=== PATIENT | male | born 1945 | race Hispanic/Latino ===

== ENCOUNTER 2017-09-17 20:15 | Emergency (ER) | payer OTHER ==
[~2017-09-17 20:15] MED LIST: AMLODIPINE PO; ASPI-1005 PO; ATEN100T PO; CLOP75TA32 PO; FENO134C PO; HYDR100T27 PO; INSU10VI3 SQ; LISI-617 PO; PRAV40TA3 PO; SODI325T PO; TORS10TA18 PO; VORA2.082 PO
[2017-09-17 20:55] LABS: BASOPHILS % (AUTO) 1.3 % (0.0-5.0); HEMATOCRIT 23.6 % (42-54); LYMPHOCYTES % (AUTO) 10.4 % (21.0-51.0); MEAN CORPUSCULAR VOLUME 88.6 fL (79-99); MONOCYTES % (AUTO) 7.5 % (3.0-13.0); NEUTROPHILS % (AUTO) 73.8 % (40.0-77.0); PLATELET COUNT (AUTO) 235 K/uL (130-400); RED BLOOD CELL COUNT(AUTO) 2.67 MIL/uL (4.50-6.20); RED CELL DISTRIBUTION WIDTH 13.3 % (11.0-15.5); WHITE BLOOD COUNT (AUTO) 8.9 K/uL (4.8-10.8)
[2017-09-17 21:13] LABS: INR 0.95 (0.85-1.15); PARTIAL THROMBOPLASTIN TIME 26.8 SEC (26.3-35.5)
[2017-09-17 21:23] LABS: BILIRUBIN,TOTAL 0.3 mg/dL (0.2-1.0); CREATININE 6.7 mg/dL (0.5-1.5); TOTAL PROTEIN, SERUM 6.1 g/dL (6.0-8.3)
[2017-09-17 21:34] LABS: B-TYPE NATRIURETIC PEPTIDE 846 pg/mL (0-100)
== END 2017-09-17 22:52 | disposition home or self-care (01) ==
LOC: EDH 20:15
DX: I13.11 Hypertensive heart and chronic kidney disease without heart failure, with stage 5 chronic kidney disease, or end stage renal disease (principal); N18.6 End stage renal disease; M79.89 Other specified soft tissue disorders; E11.22 Type 2 diabetes mellitus with diabetic chronic kidney disease; E78.5 Hyperlipidemia, unspecified; Z86.73 Personal history of transient ischemic attack (TIA), and cerebral infarction without residual deficits; Z95.1 Presence of aortocoronary bypass graft; Z90.49 Acquired absence of other specified parts of digestive tract; Z99.2 Dependence on renal dialysis; Z72.0 Tobacco use
CPT/HCPCS: 36415; 71045; 80053; 83605; 83874; 83880; 84484; 85025; 85378; 85610; 85730; 93005; 93970

== ENCOUNTER → 2018-07-18 | Outpatient (CLI) | payer OTHER ==
[~2018-07-18] MED LIST changes: +AMLO10TA6 PO; -AMLODIPINE PO; -ATEN100T PO; +CARV25TA PO; +CILO50TA PO; +CLON0.1T PO; -CLOP75TA32 PO; +Calcium Acetate PO; -FENO134C PO; -HYDR100T27 PO; -INSU10VI3 SQ; +LACT PO; -LISI-617 PO; -SODI325T PO; -TORS10TA18 PO; +VIT-7 PO; -VORA2.082 PO
== END | disposition home or self-care (01) ==
LOC: SHCH 10:57
PROVIDERS: ATTEND Internal Medicine Cardiovascular Disease
DX: I51.7 Cardiomegaly (principal)
CPT/HCPCS: 93306

== ENCOUNTER → 2018-07-25 | Outpatient (CLI) | payer OTHER | END | disposition home or self-care (01) | LOC: SHCH 11:01 | PROVIDERS: ATTEND Internal Medicine Cardiovascular Disease | DX: I73.9 Peripheral vascular disease, unspecified (principal) | CPT/HCPCS: 93925 ==

== ENCOUNTER 2018-12-26 10:51 | Inpatient (IN) | payer OTHER | END 2019-01-03 15:15 | disposition home or self-care (01) | LOC: EDH 10:51 → 3BH 12-29 15:33 → EDHIP 14:26 → 2AH 20:20 | PROC: 0W9B30Z Drainage of Left Pleural Cavity with Drainage Device, Percutaneous Approach (ICD-10-PCS; principal; ~2018-12-26) | PROC: 0BBJ8ZX Excision of Left Lower Lung Lobe, Via Natural or Artificial Opening Endoscopic, Diagnostic (ICD-10-PCS; ~2018-12-26) | DX: J90 Pleural effusion, not elsewhere classified (principal); J96.91 Respiratory failure, unspecified with hypoxia; N18.6 End stage renal disease; I12.0 Hypertensive chronic kidney disease with stage 5 chronic kidney disease or end stage renal disease; Z99.2 Dependence on renal dialysis; E11.22 Type 2 diabetes mellitus with diabetic chronic kidney disease; E87.70 Fluid overload, unspecified; E11.21 Type 2 diabetes mellitus with diabetic nephropathy; E11.51 Type 2 diabetes mellitus with diabetic peripheral angiopathy without gangrene; I25.10 Atherosclerotic heart disease of native coronary artery without angina pectoris; D63.1 Anemia in chronic kidney disease; R63.4 Abnormal weight loss; Z95.820 Peripheral vascular angioplasty status with implants and grafts ==

== ENCOUNTER 2019-07-23 13:53 | Emergency (ER) | payer OTHER ==
[~2019-07-23 13:53] MED LIST changes: -AMLO10TA6 PO; +AMLO10TA7 PO
[2019-07-23 14:19] LABS: BASOPHILS % (AUTO) 0.8 % (0.0-5.0); EOSINOPHILS % (AUTO) 0.5 % (0.0-8.0); LYMPHOCYTES % (AUTO) 6.4 % (21.0-51.0); MEAN CORPUSCULAR HEMOGLOBIN 31.9 pg (27.0-33.0); MEAN CORPUSCULAR VOLUME 93.9 fL (79-99); MONOCYTES % (AUTO) 3.7 % (3.0-13.0); NEUTROPHILS % (AUTO) 88.6 % (40.0-77.0); NUCLEATED RED BLOOD CELLS 0.1 % (0.0-0.19); PLATELET COUNT (AUTO) 197 K/uL (130-400); RED BLOOD CELL COUNT(AUTO) 3.94 MIL/uL (4.50-6.20); RED CELL DISTRIBUTION WIDTH 14.2 % (11.0-15.5); WHITE BLOOD COUNT (AUTO) 8.7 K/uL (4.8-10.8)
[2019-07-23] MEDS ORDERED: ONDANSETRON HCL 4 MG/2 ML VIAL ONE (14:25)
[2019-07-23 14:39] LABS: ALBUMIN 3.6 g/dL (3.5-5.0); BILIRUBIN,DIRECT 0.1 mg/dL (0.0-0.3); BILIRUBIN,TOTAL 0.4 mg/dL (0.2-1.0); POTASSIUM 5.1 mmol/L (3.5-5.1); TOTAL PROTEIN, SERUM 7.6 g/dL (6.0-8.3)
[2019-07-23 14:43] LABS: CREATININE 8.5 mg/dL (0.5-1.5)
== END 2019-07-23 16:40 | disposition home or self-care (01) ==
LOC: EDH 13:53
DX: R10.9 Unspecified abdominal pain (principal); R31.9 Hematuria, unspecified; N18.6 End stage renal disease; I12.0 Hypertensive chronic kidney disease with stage 5 chronic kidney disease or end stage renal disease; E11.22 Type 2 diabetes mellitus with diabetic chronic kidney disease; E78.5 Hyperlipidemia, unspecified; Z72.0 Tobacco use; Z98.890 Other specified postprocedural states; Z86.73 Personal history of transient ischemic attack (TIA), and cerebral infarction without residual deficits; Z99.2 Dependence on renal dialysis
CPT/HCPCS: 36415; 74176; 80048; 80076; 83690; 84484; 85025; 93005; 96374; 99284; J2405

== ENCOUNTER 2019-09-25 15:49 | Emergency (ER) | payer OTHER ==
[2019-09-25] MEDS ORDERED: TRAMADOL HCL 50 MG TABLET ONE (16:15)
== END 2019-09-25 17:25 | disposition home or self-care (01) ==
LOC: EDH 15:49
DX: G89.29 Other chronic pain (principal); M79.672 Pain in left foot; I73.9 Peripheral vascular disease, unspecified; E13.22 Other specified diabetes mellitus with diabetic chronic kidney disease; I12.0 Hypertensive chronic kidney disease with stage 5 chronic kidney disease or end stage renal disease; N18.6 End stage renal disease; E78.5 Hyperlipidemia, unspecified; Z72.0 Tobacco use

== ENCOUNTER 2019-10-16 10:00 | Observation (INO) | payer OTHER ==
[2019-10-16] VITALS (11 sets, daily range): BP systolic 100–169; BP diastolic 39–103
[~2019-10-16] VITALS: Ht 166.4 cm; Wt 75.2 kg
[~2019-10-16 10:00] MED LIST changes: +FENTANYL CITRATE PF 50 MCG/1 ML 2ML VIAL ONE; +HEPARIN SODIUM 1000UNIT/ML 10ML VIAL ONE; +IODIXANOL 320 MG/ML 100 ML VIAL ONE; +LEVO500T2 PO; +LIDOCAINE HCL 2% 20ML ONE; +MIDAZOLAM HCL 1 MG/ML 2ML VIAL ONE; +NITROGLYCERIN 2 MG/VIAL VIAL IV ONE; +TRAM50TA4 PO
[2019-10-16 10:46] LABS: BASOPHILS % (AUTO) 1.2 % (0.0-5.0); HEMATOCRIT 33.3 % (42-54); LYMPHOCYTES % (AUTO) 11.1 % (21.0-51.0); MEAN CORPUSCULAR HEMOGLOBIN 31.2 pg (27.0-33.0); MEAN CORPUSCULAR VOLUME 94.3 fL (79-99); MONOCYTES % (AUTO) 7.9 % (3.0-13.0); NEUTROPHILS % (AUTO) 73.3 % (40.0-77.0); PLATELET COUNT (AUTO) 203 K/uL (130-400); RED BLOOD CELL COUNT(AUTO) 3.53 MIL/uL (4.50-6.20); RED CELL DISTRIBUTION WIDTH 13.2 % (11.0-15.5); WHITE BLOOD COUNT (AUTO) 7.5 K/uL (4.8-10.8)
[2019-10-16 10:55] LABS: INR 1.02 (0.85-1.15); PARTIAL THROMBOPLASTIN TIME 28.5 SEC (26.3-35.5); PROTHROMBIN TIME 10.7 SEC (9.6-11.6)
[2019-10-16 10:58] LABS: CREATININE 6.1 mg/dL (0.5-1.5); POTASSIUM 4.6 mmol/L (3.5-5.1)
[2019-10-16 11:03] LABS: APPEARANCE,URINE Cloudy (CLEAR); BILIRUBIN,URINE Negative (NEGATIVE); COLOR,URINE Yellow (YELLOW); GLUCOSE, URINE (UA) 250 mg/dL (NEGATIVE); KETONES,URINE Negative (NEGATIVE); LEUKOCYTE ESTERASE ,URINE Negative (NEGATIVE); NITRATE,URINE Negative (NEGATIVE); OCCULT BLOOD,URINE Negative (NEGATIVE); PH,URINE 7.5 (5.0-8.0); PROTEIN,URINE 300 mg/dL (NEGATIVE)
[2019-10-16] MEDS ORDERED: SODIUM CHLORIDE 0.9% 500ML 500 ML IV SCH (11:30)
[2019-10-16 11:31] LABS: BACTERIA,URINE Few /HPF (None Seen); RBC,URINE 0-1 /HPF (0-1); WBC,URINE 0-1 /HPF (0-1)
--- NOTE | 2019-10-16 12:16 | NUR ---
SPOKE TO BO BAIRD AWARE OF ABNORMAL LABS CREAT 6.1 PT ON DIALYSIS TU, THRU, SAT. NO NEW ORDERS AT THIS TIME.
[2019-10-16] MEDS ORDERED: CLOPIDOGREL BISULFATE 300 MG TAB ONE (17:43)
[2019-10-16] MEDS ORDERED: ASPIRIN 81MG TAB.CHEW ONE (17:43)
[2019-10-16] MEDS ORDERED: DEXTROSE 50%-WATER 50 ML DISP.SYRIN IV PRN (17:45)
[2019-10-16] MEDS ORDERED: METOPROLOL TARTRATE 1 MG/ML 5ML VIAL IV PRN (17:45)
[2019-10-16] MEDS ORDERED: GLUCAGON 1MG KIT 1 MG ML IM PRN (17:45)
[2019-10-16] MEDS ORDERED: NITROGLYCERIN 0.4 MG SL TAB SL PRN (17:45)
[2019-10-16] MEDS ORDERED: CILOSTAZOL 100 MG TAB PO SCH (21:00)
[2019-10-16] MEDS: CARVEDILOL 25 MG TABLET PO SCH ×2 (21:00→21:50)
[2019-10-16] MEDS ORDERED: CLONIDINE HCL 0.1 MG TABLET PO SCH (21:00)
[2019-10-16] MEDS: INSULIN HUMULIN R 100 UNIT/ML 3ML SQ SCH (21:52)
[2019-10-17 04:00] VITALS: BP 107/44
[2019-10-17 04:52] LABS: HEMATOCRIT 29.5 % (42-54); MEAN CORPUSCULAR HEMOGLOBIN 30.8 pg (27.0-33.0); MEAN CORPUSCULAR HGB CONC 33.6 g/dL (32.0-36.0); MEAN CORPUSCULAR VOLUME 91.9 fL (79-99); PLATELET COUNT (AUTO) 203 K/uL (130-400); RED BLOOD CELL COUNT(AUTO) 3.21 MIL/uL (4.50-6.20); RED CELL DISTRIBUTION WIDTH 13.2 % (11.0-15.5)
[2019-10-17 04:59] LABS: POTASSIUM 4.1 mmol/L (3.5-5.1)
[2019-10-17] MEDS ORDERED: TRAMADOL HCL 50 MG TABLET PO STA (05:58)
[2019-10-17] MEDS: INSULIN HUMULIN R 100 UNIT/ML 3ML SQ SCH (06:09)
[2019-10-17 07:43] VITALS: BP 97/79
--- NOTE | 2019-10-17 08:00 | NUR ---
DISCHARGE INSTRUCTIONS GIVEN TO PATIENT. 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 PRESCRIPTION FOR PLAVIX INCLUDED IN THE D/C PACKET. ACTIVITY RESTRICTIONS DISCUSSED WITH PATIENT. RIGHT PRESSURE DRESSING OVER BRACHIAL PUNCTURE SITE IS STILL IN PLACE. NO SIGN OF HEMATOMA, BLEEDING, AND/OR OOZING. PIV X 2 REMOVED. ALL BELONGINGS WERE PACKED AND TAKEN HOME. TELE PACK REMOVED AND RETURNED.
[2019-10-17] MEDS ORDERED: AMLODIPINE BESYLATE 5 MG TAB PO SCH (09:00)
[2019-10-17] MEDS ORDERED: CLOPIDOGREL BISULFATE 75 MG TAB PO SCH (09:00)
[2019-10-17] MEDS ORDERED: FOLIC ACID/VITAMIN B COMP W-C 1 MG CAP/TAB PO SCH (09:00)
[2019-10-17] MEDS ORDERED: SIMVASTATIN 20 MG TABLET PO SCH (09:00)
[2019-10-17] MEDS ORDERED: ASPIRIN 81MG TAB.CHEW PO SCH (09:00)
== END 2019-10-17 09:15 | disposition home or self-care (01) ==
LOC: DAH 10:00 → CLH 10:00 → DAH 18:40 → 2DH 18:40
PROVIDERS: ADMIT Internal Medicine Cardiovascular Disease; ATTEND Internal Medicine Cardiovascular Disease
DX: I73.89 Other specified peripheral vascular diseases (principal); I77.89 Other specified disorders of arteries and arterioles; I25.810 Atherosclerosis of coronary artery bypass graft(s) without angina pectoris; E11.21 Type 2 diabetes mellitus with diabetic nephropathy; E11.40 Type 2 diabetes mellitus with diabetic neuropathy, unspecified; E11.22 Type 2 diabetes mellitus with diabetic chronic kidney disease; N18.6 End stage renal disease; E78.5 Hyperlipidemia, unspecified; Z86.73 Personal history of transient ischemic attack (TIA), and cerebral infarction without residual deficits; Z99.2 Dependence on renal dialysis; Z72.0 Tobacco use
CPT/HCPCS: 36415 ×2; 37226; 80048 ×2; 81001; 82948 ×3; 85025; 85027; 85347; 85610; 85730; 96372; A4215; A4216; A4221; A4222; A4223 ×3; A4606; A4663; C1725 ×2; C1769 ×3; C1887 ×2; C1893; C1894 ×2; C2623; G0378 ×7; J1644 ×3; J1815; J3010; J3490 ×2; Q9967; 75710; 75774; J2250

== ENCOUNTER → 2020-04-27 | Outpatient (CLI) | payer OTHER ==
[~2020-04-27] MED LIST changes: -Calcium Acetate PO; -FENTANYL CITRATE PF 50 MCG/1 ML 2ML VIAL ONE; -HEPARIN SODIUM 1000UNIT/ML 10ML VIAL ONE; -IODIXANOL 320 MG/ML 100 ML VIAL ONE; -LACT PO; -LEVO500T2 PO; -LIDOCAINE HCL 2% 20ML ONE; -MIDAZOLAM HCL 1 MG/ML 2ML VIAL ONE; -NITROGLYCERIN 2 MG/VIAL VIAL IV ONE; -TRAM50TA4 PO
== END | disposition home or self-care (01) ==
LOC: SHCH 16:10
PROVIDERS: ATTEND Internal Medicine Cardiovascular Disease
DX: I73.9 Peripheral vascular disease, unspecified (principal)
CPT/HCPCS: 93925

== ENCOUNTER → 2020-07-07 | Outpatient (CLI) | payer OTHER ==
[~2020-07-07] MED LIST changes: +AMLO-258 PO; -AMLO10TA7 PO; +CLOP75TA32 PO; +FOLI1TAB85 PO; +RIVA2.5T PO
== END | disposition home or self-care (01) ==
LOC: SHCH 14:22
PROVIDERS: ATTEND Internal Medicine Cardiovascular Disease
DX: I73.9 Peripheral vascular disease, unspecified (principal); I87.2 Venous insufficiency (chronic) (peripheral)
CPT/HCPCS: 93926

== ENCOUNTER 2020-07-13 06:00 | Day surgery (SDC) | payer OTHER ==
[2020-07-11 17:09] LABS: BASOPHILS % (AUTO) 0.7 % (0.0-5.0); EOSINOPHILS % (AUTO) 5.2 % (0.0-8.0); HEMATOCRIT 32.4 % (42-54); LYMPHOCYTES % (AUTO) 9.8 % (21.0-51.0); MEAN CORPUSCULAR HEMOGLOBIN 30.6 pg (27.0-33.0); MONOCYTES % (AUTO) 6.1 % (3.0-13.0); NEUTROPHILS % (AUTO) 77.9 % (40.0-77.0); PLATELET COUNT (AUTO) 195 K/uL (130-400); RED CELL DISTRIBUTION WIDTH 13.2 % (11.0-15.5); WHITE BLOOD COUNT (AUTO) 6.7 K/uL (4.8-10.8)
[2020-07-11 17:18] LABS: CREATININE 3.9 mg/dL (0.5-1.5); POTASSIUM 4.1 mmol/L (3.5-5.1)
[2020-07-11 17:20] LABS: INR 0.99 (0.85-1.15); PARTIAL THROMBOPLASTIN TIME 31.3 SEC (26.3-35.5); PROTHROMBIN TIME 10.7 SEC (9.6-11.6)
--- NOTE | 2020-07-12 13:45 | NUR ---
DR HERNANDEZ INFORMED OF ABNORMAL LABS. ALSO AWARE THAT PT IS TAKING XARELTO HE PRESCRIBED. XARELTO OK PER DR HERNANDEZ. NO FURTHER ORDERS
[2020-07-12 13:54] VITALS: BP 177/62
[2020-07-13] VITALS (20 sets, daily range): BP systolic 134–183; BP diastolic 46–70
[~2020-07-13] VITALS: Ht 165.1 cm; Wt 79.7 kg
[~2020-07-13 06:00] MED LIST changes: -CILO50TA PO; +SODIUM CHLORIDE 0.9% 500ML 500 ML IV SCH; -VIT-7 PO
[2020-07-13] MEDS ORDERED: SODIUM CHLORIDE 0.9% 1000ML 1,000 ML IV ONE (07:10)
[2020-07-13] MEDS ORDERED: NITROGLYCERIN 2 MG/VIAL VIAL IV ONE (07:18)
[2020-07-13] MEDS ORDERED: IODIXANOL 320 MG/ML 100 ML VIAL ONE (07:18)
[2020-07-13] MEDS ORDERED: HEPARIN SODIUM 1000UNIT/ML 10ML VIAL ONE (07:18)
[2020-07-13] MEDS ORDERED: MIDAZOLAM HCL 1 MG/ML 2ML VIAL ONE (07:19)
[2020-07-13] MEDS ORDERED: FENTANYL CITRATE PF 50 MCG/1 ML 2ML VIAL ONE (07:19)
[2020-07-13] MEDS ORDERED: LIDOCAINE HCL 2% 20ML ONE (07:19)
[2020-07-13] MEDS ORDERED: GLUCAGON 1MG KIT 1 MG ML IM PRN (09:30)
[2020-07-13] MEDS ORDERED: NITROGLYCERIN 0.4 MG SL TAB SL PRN (09:30)
[2020-07-13] MEDS ORDERED: DEXTROSE 50%-WATER 50 ML DISP.SYRIN IV PRN (09:30)
[2020-07-13] MEDS ORDERED: METOPROLOL TARTRATE 1 MG/ML 5ML VIAL IV PRN (09:30)
[2020-07-13] MEDS ORDERED: SODIUM CHLORIDE 0.9% 500ML 500 ML IV SCH (09:45)
[2020-07-13] MEDS ORDERED: INSULIN HUMULIN R 100 UNIT/ML 3ML SQ SCH (11:30)
[2020-07-13] MEDS ORDERED: ATROPINE SULFATE 0.1 MG/ML 10 ML SYG IVP ONE (12:04)
--- NOTE | 2020-07-13 14:15 | NUR ---
PT ENDORSED TO WILLIAM ESTRADA
[2020-07-22] MEDS ORDERED: TRAM50TA4 PO (10:45)
== END 2020-07-13 16:05 | disposition home or self-care (01) ==
LOC: DAH 06:00
PROVIDERS: ATTEND Internal Medicine Cardiovascular Disease
DX: I70.202 Unspecified atherosclerosis of native arteries of extremities, left leg (principal); M62.262 Nontraumatic ischemic infarction of muscle, left lower leg; E11.51 Type 2 diabetes mellitus with diabetic peripheral angiopathy without gangrene; E11.21 Type 2 diabetes mellitus with diabetic nephropathy; I25.10 Atherosclerotic heart disease of native coronary artery without angina pectoris; Z95.1 Presence of aortocoronary bypass graft; E78.5 Hyperlipidemia, unspecified; E11.22 Type 2 diabetes mellitus with diabetic chronic kidney disease; N18.6 End stage renal disease; Z86.73 Personal history of transient ischemic attack (TIA), and cerebral infarction without residual deficits; Z99.2 Dependence on renal dialysis; Z98.890 Other specified postprocedural states; Z79.01 Long term (current) use of anticoagulants; Z79.899 Other long term (current) drug therapy
CPT/HCPCS: 36415; 37224; 71045; 75710; 80048; 82948 ×2; 85025; 85610; 85730; 93005; A4215; A4216; A4221; A4222; A4223 ×3; A4606; A4663; C1725; C1769 ×5; C1887; C1893; C1894 ×2; J1644 ×2; J1815; J2250; J3010; J3490 ×2; J7030; Q9967; 75774; 99156; 99157; J0461

== ENCOUNTER 2020-07-25 07:24 | Observation (INO) | payer OTHER ==
[2020-07-25] VITALS (10 sets, daily range): BP systolic 160–188; BP diastolic 53–83
[~2020-07-25 07:24] MED LIST changes: -SODIUM CHLORIDE 0.9% 500ML 500 ML IV SCH; +TRAM50TA4 PO
[2020-07-25] MEDS ORDERED: SODIUM CHLORIDE 0.9% 1000ML 1,000 ML IV ONE (07:53)
[2020-07-25] MEDS ORDERED: HEPARIN SODIUM 1000UNIT/ML 10ML VIAL ONE ×2 (11:05→14:05)
[2020-07-25] MEDS ORDERED: MIDAZOLAM HCL 1 MG/ML 2ML VIAL ONE ×2 (11:05→14:18)
[2020-07-25] MEDS ORDERED: IODIXANOL 320 MG/ML 100 ML VIAL ONE ×2 (11:05→14:05)
[2020-07-25] MEDS ORDERED: NITROGLYCERIN 2 MG/VIAL VIAL IV ONE ×2 (11:05→14:25)
[2020-07-25] MEDS ORDERED: MEPERIDINE-PF 25 MG/ML SYG ONE (11:05)
[2020-07-25] MEDS ORDERED: LIDOCAINE HCL 2% 20ML ONE (11:05)
[2020-07-25] MEDS ORDERED: LIDOCAINE HCL 1% MDV 50ML VIAL ONE (14:05)
[2020-07-25] MEDS ORDERED: FENTANYL CITRATE PF 50 MCG/1 ML 2ML VIAL ONE (14:19)
[2020-07-25] MEDS ORDERED: DEXTROSE 50%-WATER 50 ML DISP.SYRIN IV PRN (17:00)
[2020-07-25] MEDS ORDERED: GLUCAGON 1MG KIT 1 MG ML IM PRN (17:00)
[2020-07-25] MEDS ORDERED: NITROGLYCERIN 0.4 MG SL TAB SL PRN (17:00)
[2020-07-25] MEDS ORDERED: TRAMADOL HCL 50 MG TABLET PO PRN (18:15)
[2020-07-25] MEDS: RIVAROXABAN 2.5 MG TABLET PO SCH (20:10)
[2020-07-25] MEDS: CARVEDILOL 25 MG TABLET PO SCH (20:10)
[2020-07-25] MEDS: CLONIDINE HCL 0.1 MG TABLET PO SCH (20:13)
[2020-07-25] MEDS ORDERED: NON-FORMULARY MEDICATION 1 EACH (Amlodipine Besylate 10 MG) PO SCH (21:00)
[2020-07-25] MEDS: INSULIN HUMULIN R 100 UNIT/ML 3ML SQ SCH (21:00)
[2020-07-25] MEDS ORDERED: SIMVASTATIN 20 MG TABLET PO SCH (21:00)
[2020-07-25] MEDS ORDERED: AMLODIPINE BESYLATE 5 MG TAB PO SCH (21:00)
[2020-07-26] VITALS: BP 148/65
[2020-07-26 04:00] VITALS: BP 175/58
[2020-07-26 05:56] LABS: BASOPHILS % (AUTO) 0.6 % (0.0-5.0); EOSINOPHILS % (AUTO) 4.6 % (0.0-8.0); HEMATOCRIT 26.7 % (42-54); MEAN CORPUSCULAR HEMOGLOBIN 30.2 pg (27.0-33.0); MEAN CORPUSCULAR HGB CONC 33.7 g/dL (32.0-36.0); MEAN CORPUSCULAR VOLUME 89.6 fL (79-99); MONOCYTES % (AUTO) 6.5 % (3.0-13.0); PLATELET COUNT (AUTO) 236 K/uL (130-400); RED BLOOD CELL COUNT(AUTO) 2.98 MIL/uL (4.50-6.20); RED CELL DISTRIBUTION WIDTH 13.7 % (11.0-15.5); WHITE BLOOD COUNT (AUTO) 6.8 K/uL (4.8-10.8)
[2020-07-26 06:15] LABS: ALBUMIN 3.2 g/dL (3.5-5.0); BILIRUBIN,TOTAL 0.4 mg/dL (0.2-1.0); CREATININE 7.7 mg/dL (0.5-1.5); POTASSIUM 4.5 mmol/L (3.5-5.1); TOTAL PROTEIN, SERUM 6.7 g/dL (6.0-8.3)
[2020-07-26 07:00] VITALS: BP 182/79
[2020-07-26] MEDS: INSULIN HUMULIN R 100 UNIT/ML 3ML SQ SCH ×2 (07:30→11:30)
[2020-07-26] MEDS: CLONIDINE HCL 0.1 MG TABLET PO SCH (08:41)
[2020-07-26] MEDS: CARVEDILOL 25 MG TABLET PO SCH (08:42)
[2020-07-26] MEDS: RIVAROXABAN 2.5 MG TABLET PO SCH (08:42)
[2020-07-26] MEDS ORDERED: ASPIRIN 81MG TAB.CHEW PO SCH (09:00)
[2020-07-26] MEDS ORDERED: CLOPIDOGREL BISULFATE 75 MG TAB PO SCH (09:00)
[2020-07-26] MEDS ORDERED: NON-FORMULARY MEDICATION 1 EACH (Vit B Cmplx 3/FA/Vit C/Biotin (Rena-Vite Rx Tablet) 1 EAC PO SCH (09:00)
[2020-07-26] MEDS ORDERED: NON-FORMULARY MEDICATION 1 EACH (Pravastatin Sodium 40 MG) PO SCH (09:00)
[2020-07-26] MEDS ORDERED: Vitamin B Complex/Vit C/Folic Acid PO SCH (09:00)
[2020-07-26 11:00] VITALS: BP 156/61
== END 2020-07-26 16:20 | disposition home or self-care (01) ==
LOC: DAH 07:24 → DAHIP 07:25 → UNDOADMOB 07:25 → DAH 07:25 → 4DH 07:25
PROVIDERS: ADMIT Internal Medicine Nephrology; ATTEND Internal Medicine Nephrology
DX: I70.222 Atherosclerosis of native arteries of extremities with rest pain, left leg (principal); E11.51 Type 2 diabetes mellitus with diabetic peripheral angiopathy without gangrene; E11.621 Type 2 diabetes mellitus with foot ulcer; I25.10 Atherosclerotic heart disease of native coronary artery without angina pectoris; I13.11 Hypertensive heart and chronic kidney disease without heart failure, with stage 5 chronic kidney disease, or end stage renal disease; E11.22 Type 2 diabetes mellitus with diabetic chronic kidney disease; N18.6 End stage renal disease; I25.5 Ischemic cardiomyopathy; D64.9 Anemia, unspecified; L97.509 Non-pressure chronic ulcer of other part of unspecified foot with unspecified severity; E11.65 Type 2 diabetes mellitus with hyperglycemia; E78.5 Hyperlipidemia, unspecified; Z90.49 Acquired absence of other specified parts of digestive tract; Z99.2 Dependence on renal dialysis; Z95.1 Presence of aortocoronary bypass graft; Z79.899 Other long term (current) drug therapy
CPT/HCPCS: 36415 ×3; 37227; 37229; 75710; 80048; 80053; 82948 ×5; 85025; 85027; 85347; 85610; 85730; 93005; 96360; 96361; A4215; A4216; A4221; A4222; A4223 ×3; A4606; A4663; C1724 ×3; C1725 ×3; C1760; C1769 ×3; C1876; C1887; C1894 ×2; G0378 ×20; J1644 ×4; J2250; J3010; J3490 ×2; J7030; Q9967; 90935; 99156; 99157; J2175

== ENCOUNTER 2020-07-26 21:01 | Inpatient (IN) | payer OTHER ==
[~2020-07-26] VITALS: Ht 165.1 cm; Wt 80.2 kg
[2020-07-26 21:36] LABS: BASOPHILS % (AUTO) 0.7 % (0.0-5.0); EOSINOPHILS % (AUTO) 3.1 % (0.0-8.0); HEMATOCRIT 25.8 % (42-54); LYMPHOCYTES % (AUTO) 7.6 % (21.0-51.0); MEAN CORPUSCULAR HGB CONC 34.5 g/dL (32.0-36.0); MEAN CORPUSCULAR VOLUME 89.9 fL (79-99); MONOCYTES % (AUTO) 7.7 % (3.0-13.0); NEUTROPHILS % (AUTO) 80.5 % (40.0-77.0); PLATELET COUNT (AUTO) 238 K/uL (130-400); RED BLOOD CELL COUNT(AUTO) 2.87 MIL/uL (4.50-6.20); WHITE BLOOD COUNT (AUTO) 7.5 K/uL (4.8-10.8)
[2020-07-26 21:48] LABS: CREATININE 5.3 mg/dL (0.5-1.5); POTASSIUM 3.8 mmol/L (3.5-5.1)
[2020-07-26 21:49] LABS: INR 1.1 (0.85-1.15); PARTIAL THROMBOPLASTIN TIME 33.4 SEC (26.3-35.5); PROTHROMBIN TIME 11.8 SEC (9.6-11.6)
[2020-07-26 21:53] LABS: ALBUMIN 3.4 g/dL (3.5-5.0); BILIRUBIN,TOTAL 0.3 mg/dL (0.2-1.0); TOTAL PROTEIN, SERUM 6.9 g/dL (6.0-8.3)
[2020-07-26] MEDS ORDERED: ACETAMINOPHEN-CODEINE 300/30MG TAB ONE (22:42)
[2020-07-27 00:30] VITALS: BP 164/56
--- NOTE | 2020-07-27 01:00 | NUR ---
PATIENT ADMITTED WITH DX OR POSSIBLE LEFT GROIN HEMATOMA AND RENAL FAILURE. PATIENT WAS DISCHARGED 07/26/[address] TRIP HERNANDEZ. PATIENT STATES WHEN HE GOT HOME HE GOT INTO BED AND FELT PAIN IN HIS LEFT GROIN. PATIENT WAS BROUGHT IN TO THE EMERGENCY ROOM VIA EMS. PATIENT IS AAOX4, NO ACUTE DISTRESS NOTED. LEFT GROIN WITH D-STAT IN PLACE NOTED SOFT WITH BRUISING, FEMORAL PULSES PALPATED. DISTAL DORSALIS PULSE TO LEFT WITH DOPPLER. POC DISCUSSED WITH PATIENT. PLAN FOR HD PER OUT PATIENT SCHEDULE. TELE MONITORING ONGOING WITH SB 53 1 DEGREE. WILL CONT TO MONITOR CLOSELY. INSTRUCTED TO CALL FOR ASSISTANCE; CALL JIN WITHIN REACH.
[2020-07-27] MEDS ORDERED: ONDANSETRON HCL 4 MG/2 ML VIAL IVP PRN (03:15)
[2020-07-27] MEDS ORDERED: ACETAMINOPHEN 325 MG TAB PO PRN (03:15)
[2020-07-27 03:47] VITALS: BP 115/67
[2020-07-27] MEDS: INSULIN HUMULIN R 100 UNIT/ML 3ML SQ SCH ×4 (06:21→21:00)
[2020-07-27 07:57] VITALS: BP 149/60
[2020-07-27 08:10] LABS: HEMATOCRIT 24.4 % (42-54)
[2020-07-27] MEDS ORDERED: RIVAROXABAN 2.5 MG TABLET PO SCH (09:00)
[2020-07-27] MEDS ORDERED: PANTOPRAZOLE 40 MG/VIAL IVP SCH (09:00)
[2020-07-27] MEDS: ASPIRIN 81MG TAB.CHEW PO SCH (10:21)
[2020-07-27] MEDS: CLOPIDOGREL BISULFATE 75 MG TAB PO SCH (10:21)
[2020-07-27 11:47] VITALS: BP 152/59
--- NOTE | 2020-07-27 12:35 | NUR ---
CARLOS NOTE/IA MET WITH PATIENT AND SPOUSE AT BEDSIDE. PER SPOUSE, PATIENT LIVES AT HOME, IS INDEPENDENT WITH ADLS, HAS USE OF CANE, WC, ROLLATOR WALKER, SHOWER CHAIR, ATTENDS US RENAL [place] [facility] TTS, SPOUSE DRIVES AND FEELS SAFE FOR PATIENT TO RETURN HOME ONCE DISCHARGED. Addendum: 07/27/20 at 1237 by TREASURE ROPER RN CM Amended: Links added.
[2020-07-27 17:21] VITALS: BP 133/58
[2020-07-27 20:50] VITALS: BP 143/60
[2020-07-27] MEDS: CLONIDINE HCL 0.1 MG TABLET PO SCH (21:12)
[2020-07-27] MEDS: TRAMADOL HCL 50 MG TABLET PO PRN (21:13)
[2020-07-27] MEDS: AMLODIPINE BESYLATE 5 MG TAB PO SCH (21:13)
[2020-07-27] MEDS: CARVEDILOL 25 MG TABLET PO SCH (21:13)
[2020-07-28 00:34] VITALS: BP 178/76
[2020-07-28 03:39] LABS: HEMATOCRIT 21.3 % (42-54); MEAN CORPUSCULAR HEMOGLOBIN 30.4 pg (27.0-33.0); MEAN CORPUSCULAR HGB CONC 33.8 g/dL (32.0-36.0); MEAN CORPUSCULAR VOLUME 89.9 fL (79-99); RED BLOOD CELL COUNT(AUTO) 2.37 MIL/uL (4.50-6.20); RED CELL DISTRIBUTION WIDTH 13.6 % (11.0-15.5); WHITE BLOOD COUNT (AUTO) 5.7 K/uL (4.8-10.8)
[2020-07-28 03:53] LABS: INR 0.99 (0.85-1.15); PARTIAL THROMBOPLASTIN TIME 29.6 SEC (26.3-35.5); PROTHROMBIN TIME 10.7 SEC (9.6-11.6)
[2020-07-28 04:00] VITALS: BP 157/52
[2020-07-28 04:11] LABS: ALBUMIN 2.9 g/dL (3.5-5.0); BILIRUBIN,TOTAL 0.4 mg/dL (0.2-1.0); PHOSPHORUS 7.3 mg/dL (2.5-4.9); POTASSIUM 3.8 mmol/L (3.5-5.1); TOTAL PROTEIN, SERUM 6.7 g/dL (6.0-8.3)
[2020-07-28 04:12] LABS: CREATININE 7.9 mg/dL (0.5-1.5)
[2020-07-28] MEDS: INSULIN HUMULIN R 100 UNIT/ML 3ML SQ SCH ×4 (05:59→20:10)
--- NOTE | 2020-07-28 08:00 | NUR ---
AM ASSESSMENT: DRESSING TO LT. GROIN AREA INTACT, CLEAN AND DRY. SOME BRUISING AND A HARD SWOLLEN AREA NOTED TO GROIN AREA, PER SPOUSE, SWELLING HAS GONE DOWN.WILL KEEP BEDREST AND CONTINUE TO MONITOR SITE.
[2020-07-28 08:11] VITALS: BP 148/50
--- NOTE | 2020-07-28 08:30 | NUR ---
DR. Irving HERNANDEZ IN TO SEE PT, ORDERED PT. TO TO EVALUATE AND TREAT.
[2020-07-28] MEDS: SIMVASTATIN 20 MG TABLET PO SCH (10:32)
[2020-07-28] MEDS: ASPIRIN 81MG TAB.CHEW PO SCH (10:32)
[2020-07-28] MEDS: Vitamin B Complex/Vit C/Folic Acid PO SCH (10:32)
[2020-07-28] MEDS: CARVEDILOL 25 MG TABLET PO SCH ×2 (10:33→20:09)
[2020-07-28] MEDS: CLONIDINE HCL 0.1 MG TABLET PO SCH ×2 (10:34→20:08)
[2020-07-28] MEDS: CLOPIDOGREL BISULFATE 75 MG TAB PO SCH (10:35)
[2020-07-28] MEDS: PANTOPRAZOLE SODIUM 40 MG TABLET.DR PO SCH (10:36)
[2020-07-28 11:30] VITALS: BP_SYST 112; BP_SYST 135; BP_DIAS 58; BP_DIAS 74
[2020-07-28] MEDS: TRAMADOL HCL 50 MG TABLET PO PRN (13:51)
[2020-07-28] MEDS ORDERED: EPOETIN ALFA-EPBX (ESRD) 10,000 UNIT/ML VIAL SQ SCH (14:15)
[2020-07-28 17:14] VITALS: BP 158/57
[2020-07-28 19:00] VITALS: BP 162/49
[2020-07-28] MEDS: AMLODIPINE BESYLATE 5 MG TAB PO SCH (20:08)
[2020-07-29] VITALS (7 sets, daily range): BP systolic 145–175; BP diastolic 49–70
[2020-07-29 03:54] LABS: BASOPHILS % (AUTO) 0.6 % (0.0-5.0); HEMATOCRIT 25.8 % (42-54); LYMPHOCYTES % (AUTO) 12.5 % (21.0-51.0); MEAN CORPUSCULAR HEMOGLOBIN 29.8 pg (27.0-33.0); MEAN CORPUSCULAR HGB CONC 33.3 g/dL (32.0-36.0); MEAN CORPUSCULAR VOLUME 89.3 fL (79-99); NEUTROPHILS % (AUTO) 71.6 % (40.0-77.0); PLATELET COUNT (AUTO) 199 K/uL (130-400); RED BLOOD CELL COUNT(AUTO) 2.89 MIL/uL (4.50-6.20); RED CELL DISTRIBUTION WIDTH 13.7 % (11.0-15.5); WHITE BLOOD COUNT (AUTO) 6.4 K/uL (4.8-10.8)
[2020-07-29 04:15] LABS: CREATININE 6.2 mg/dL (0.5-1.5); POTASSIUM 3.7 mmol/L (3.5-5.1)
[2020-07-29] MEDS: INSULIN HUMULIN R 100 UNIT/ML 3ML SQ SCH ×4 (06:25→21:00)
[2020-07-29 07:16] LABS: HEPATITIS A ANTIBODY IGM Negative (Negative); HEPATITIS B CORE IGM Negative (Negative); HEPATITIS Bs ANTIGEN SCREEN P Negative (Negative)
[2020-07-29] MEDS: PANTOPRAZOLE SODIUM 40 MG TABLET.DR PO SCH (07:30)
[2020-07-29] MEDS: ASPIRIN 81MG TAB.CHEW PO SCH (09:40)
[2020-07-29] MEDS: CLONIDINE HCL 0.1 MG TABLET PO SCH ×2 (09:41→21:19)
[2020-07-29] MEDS: CARVEDILOL 25 MG TABLET PO SCH ×2 (09:41→21:19)
[2020-07-29] MEDS: CLOPIDOGREL BISULFATE 75 MG TAB PO SCH (09:42)
[2020-07-29] MEDS: Vitamin B Complex/Vit C/Folic Acid PO SCH (09:42)
[2020-07-29] MEDS: SIMVASTATIN 20 MG TABLET PO SCH (09:42)
[2020-07-29] MEDS: TRAMADOL HCL 50 MG TABLET PO PRN (09:47)
[2020-07-29] MEDS: AMLODIPINE BESYLATE 5 MG TAB PO SCH (21:18)
[2020-07-30 04:27] VITALS: BP 151/52
[2020-07-30] MEDS ORDERED: LACTULOSE 20 GM/30 ML UDCUP PO PRN (05:00)
[2020-07-30] MEDS ORDERED: LACTULOSE 20 GM/30 ML UDCUP ONE (05:00)
[2020-07-30 05:27] LABS: BASOPHILS % (AUTO) 0.7 % (0.0-5.0); EOSINOPHILS % (AUTO) 4.3 % (0.0-8.0); HEMATOCRIT 27.1 % (42-54); LYMPHOCYTES % (AUTO) 12.3 % (21.0-51.0); MEAN CORPUSCULAR HEMOGLOBIN 30.4 pg (27.0-33.0); MEAN CORPUSCULAR HGB CONC 33.6 g/dL (32.0-36.0); MEAN CORPUSCULAR VOLUME 90.6 fL (79-99); MONOCYTES % (AUTO) 9.2 % (3.0-13.0); PLATELET COUNT (AUTO) 266 K/uL (130-400); RED BLOOD CELL COUNT(AUTO) 2.99 MIL/uL (4.50-6.20); RED CELL DISTRIBUTION WIDTH 13.5 % (11.0-15.5); WHITE BLOOD COUNT (AUTO) 8.2 K/uL (4.8-10.8)
[2020-07-30 06:05] LABS: POTASSIUM 4.3 mmol/L (3.5-5.1)
[2020-07-30 06:19] LABS: CREATININE 8.3 mg/dL (0.5-1.5)
[2020-07-30] MEDS: INSULIN HUMULIN R 100 UNIT/ML 3ML SQ SCH ×4 (07:30→21:00)
[2020-07-30 08:06] VITALS: BP 156/44
[2020-07-30] MEDS: PANTOPRAZOLE SODIUM 40 MG TABLET.DR PO SCH (08:13)
[2020-07-30] MEDS: ASPIRIN 81MG TAB.CHEW PO SCH (08:14)
[2020-07-30] MEDS: CLONIDINE HCL 0.1 MG TABLET PO SCH ×2 (08:14→20:34)
[2020-07-30] MEDS: SIMVASTATIN 20 MG TABLET PO SCH (08:15)
[2020-07-30] MEDS: Vitamin B Complex/Vit C/Folic Acid PO SCH (08:15)
[2020-07-30] MEDS: CLOPIDOGREL BISULFATE 75 MG TAB PO SCH (08:15)
[2020-07-30] MEDS: CARVEDILOL 25 MG TABLET PO SCH ×2 (08:15→20:35)
[2020-07-30] MEDS: TRAMADOL HCL 50 MG TABLET PO PRN ×2 (08:21→20:36)
[2020-07-30 11:13] VITALS: BP 150/31
[2020-07-30 16:02] VITALS: BP 147/60
[2020-07-30 20:01] VITALS: BP 170/52
[2020-07-30] MEDS: AMLODIPINE BESYLATE 5 MG TAB PO SCH (20:35)
[2020-07-30 23:40] VITALS: BP 159/47
[2020-07-31 03:38] VITALS: BP 185/47
[2020-07-31 05:41] LABS: BASOPHILS % (AUTO) 0.8 % (0.0-5.0); EOSINOPHILS % (AUTO) 4.4 % (0.0-8.0); HEMATOCRIT 26.3 % (42-54); LYMPHOCYTES % (AUTO) 12.3 % (21.0-51.0); MEAN CORPUSCULAR HEMOGLOBIN 30.3 pg (27.0-33.0); MEAN CORPUSCULAR HGB CONC 33.5 g/dL (32.0-36.0); MEAN CORPUSCULAR VOLUME 90.7 fL (79-99); MONOCYTES % (AUTO) 10.8 % (3.0-13.0); NEUTROPHILS % (AUTO) 71.5 % (40.0-77.0); PLATELET COUNT (AUTO) 255 K/uL (130-400); RED CELL DISTRIBUTION WIDTH 13.5 % (11.0-15.5); WHITE BLOOD COUNT (AUTO) 6.1 K/uL (4.8-10.8)
[2020-07-31 05:56] LABS: MAGNESIUM 2.2 mg/dL (1.80-2.40); POTASSIUM 3.8 mmol/L (3.5-5.1)
[2020-07-31] MEDS: INSULIN HUMULIN R 100 UNIT/ML 3ML SQ SCH ×2 (06:52→11:52)
[2020-07-31 07:47] VITALS: BP 161/48
[2020-07-31] MEDS: PANTOPRAZOLE SODIUM 40 MG TABLET.DR PO SCH (08:29)
[2020-07-31] MEDS: CLOPIDOGREL BISULFATE 75 MG TAB PO SCH (08:29)
[2020-07-31] MEDS: CARVEDILOL 25 MG TABLET PO SCH (08:30)
[2020-07-31] MEDS: ASPIRIN 81MG TAB.CHEW PO SCH (08:30)
[2020-07-31] MEDS: CLONIDINE HCL 0.1 MG TABLET PO SCH (08:30)
[2020-07-31] MEDS: Vitamin B Complex/Vit C/Folic Acid PO SCH (08:31)
[2020-07-31] MEDS: TRAMADOL HCL 50 MG TABLET PO PRN (08:31)
[2020-07-31] MEDS: SIMVASTATIN 20 MG TABLET PO SCH (08:31)
[2020-07-31 12:06] VITALS: BP 187/53
--- NOTE | 2020-08-01 16:56 | NUR ---
TRANSITIONAL CARE -- Post-Discharge Note Spoke with the patient over the phone at primary number listed. As per Mr Alexandro, he is doing well. He is taking his discharge medications as ordered. He is aware of his follow up appointments and assures me will keep them. No complaints of SOB, CP, fever/chills, N/V/D.
== END 2020-07-31 16:40 | disposition home or self-care (01) | DRG 919 ==
LOC: EDH 21:01 → EDHIP 22:10 → 3BH 23:06
PROVIDERS: ADMIT Internal Medicine Nephrology; ATTEND Internal Medicine Nephrology
PROC: 2W17X6Z Compression of Left Inguinal Region using Pressure Dressing (ICD-10-PCS; 2020-07-26)
PROC: 5A1D70Z Performance of Urinary Filtration, Intermittent, Less than 6 Hours Per Day (ICD-10-PCS; principal; 2020-07-28)
PROC: 30233N1 Transfusion of Nonautologous Red Blood Cells into Peripheral Vein, Percutaneous Approach (ICD-10-PCS; 2020-07-28)
PROC: 5A1D70Z Performance of Urinary Filtration, Intermittent, Less than 6 Hours Per Day (ICD-10-PCS; 2020-07-30)
PROC: 0HBRXZZ Excision of Toe Nail, External Approach (ICD-10-PCS; 2020-07-30)
PROC: 0HBRXZZ Excision of Toe Nail, External Approach (ICD-10-PCS; 2020-07-30)
PROC: 0HBRXZZ Excision of Toe Nail, External Approach (ICD-10-PCS; 2020-07-30)
PROC: 0HBRXZZ Excision of Toe Nail, External Approach (ICD-10-PCS; 2020-07-30)
PROC: 0HBRXZZ Excision of Toe Nail, External Approach (ICD-10-PCS; 2020-07-30)
PROC: 0HBRXZZ Excision of Toe Nail, External Approach (ICD-10-PCS; 2020-07-30)
PROC: 0HBRXZZ Excision of Toe Nail, External Approach (ICD-10-PCS; 2020-07-30)
PROC: 0HBRXZZ Excision of Toe Nail, External Approach (ICD-10-PCS; 2020-07-30)
PROC: 0HBRXZZ Excision of Toe Nail, External Approach (ICD-10-PCS; 2020-07-30)
PROC: 0HBRXZZ Excision of Toe Nail, External Approach (ICD-10-PCS; 2020-07-30)
DX: L76.32 Postprocedural hematoma of skin and subcutaneous tissue following other procedure (principal); N18.6 End stage renal disease; L97.429 Non-pressure chronic ulcer of left heel and midfoot with unspecified severity; I12.0 Hypertensive chronic kidney disease with stage 5 chronic kidney disease or end stage renal disease; I25.10 Atherosclerotic heart disease of native coronary artery without angina pectoris; E78.5 Hyperlipidemia, unspecified; E11.51 Type 2 diabetes mellitus with diabetic peripheral angiopathy without gangrene; E11.22 Type 2 diabetes mellitus with diabetic chronic kidney disease; D63.8 Anemia in other chronic diseases classified elsewhere; Y83.8 Other surgical procedures as the cause of abnormal reaction of the patient, or of later complication, without mention of misadventure at the time of the procedure; B35.3 Tinea pedis; E11.621 Type 2 diabetes mellitus with foot ulcer; I99.8 Other disorder of circulatory system; L97.529 Non-pressure chronic ulcer of other part of left foot with unspecified severity; Z95.1 Presence of aortocoronary bypass graft; Z99.2 Dependence on renal dialysis; Z90.49 Acquired absence of other specified parts of digestive tract; I69.311 Memory deficit following cerebral infarction; Y92.89 Other specified places as the place of occurrence of the external cause; Z79.82 Long term (current) use of aspirin
CPT/HCPCS: 36415; 36430; 74176; 80048; 80053; 80074; 82948; 83735; 84100; 85014; 85018; 85025; 85027; 85610; 85730; 86850; 86900; 86901; 86923; 90935; 93926; 97039; C9113; G0378; J1815; P9016

== ENCOUNTER 2021-04-18 11:28 | Inpatient (IN) | payer OTHER ==
[~2021-04-18] VITALS: Ht 152.4 cm; Wt 70.4 kg
[2021-04-18] VITALS (23 sets, daily range): BP systolic 78–151; BP diastolic 40–99
[~2021-04-18 11:28] MED LIST changes: -RIVA2.5T PO
[2021-04-18 13:13] LABS: BASOPHILS % (AUTO) 0.3 % (0.0-5.0); EOSINOPHILS % (AUTO) 0.1 % (0.0-8.0); LYMPHOCYTES % (AUTO) 4.8 % (21.0-51.0); MEAN CORPUSCULAR HEMOGLOBIN 29.8 pg (27.0-33.0); MEAN CORPUSCULAR HGB CONC 31.7 g/dL (32.0-36.0); MEAN CORPUSCULAR VOLUME 93.8 fL (79-99); MONOCYTES % (AUTO) 3.3 % (3.0-13.0); NEUTROPHILS % (AUTO) 89.9 % (40.0-77.0); NUCLEATED RED BLOOD CELLS 0.9 % (0.0-0.19); PLATELET COUNT (AUTO) 284 K/uL (130-400); RED BLOOD CELL COUNT(AUTO) 1.78 MIL/uL (4.50-6.20); RED CELL DISTRIBUTION WIDTH 16.1 % (11.0-15.5); WHITE BLOOD COUNT (AUTO) 17.8 K/uL (4.8-10.8)
[2021-04-18] MEDS ORDERED: CEFTRIAXONE 1G VIAL IVP ONE (13:30)
[2021-04-18] MEDS ORDERED: AZITHROMYCIN 250 MG TABLET PO ONE ×2 (13:30→14:59)
[2021-04-18 13:32] LABS: B-TYPE NATRIURETIC PEPTIDE 2840 pg/mL (0-100)
[2021-04-18 13:34] LABS: HEMATOCRIT 16.7 % (42-54)
[2021-04-18 13:36] LABS: BILIRUBIN,TOTAL 0.4 mg/dL (0.2-1.0); CRP QUANTITATIVE 23.5 mg/L (0.00-9.0); POTASSIUM 5.3 mmol/L (3.5-5.1); TOTAL PROTEIN, SERUM 6.6 g/dL (6.0-8.3)
[2021-04-18] MEDS ORDERED: ASPIRIN 325MG TAB PO ONE (14:00)
[2021-04-18] MEDS ORDERED: NITROGLYCERIN 1GM OINT 1 INCH/1GM TD ONE (14:00)
[2021-04-18] MEDS ORDERED: CEFTRIAXONE 1G VIAL ONE (14:58)
[2021-04-18] MEDS ORDERED: 0.9%NACL 50ML 50 ML IV ONE (15:00)
[2021-04-18] MEDS ORDERED: 0.9%NACL 1000ML 500 ML IV SCH (15:30)
[2021-04-18] MEDS ORDERED: ACETAMINOPHEN 325 MG TAB PO PRN (15:30)
[2021-04-18] MEDS ORDERED: ONDANSETRON 4MG INJ IV PRN (15:30)
[2021-04-18 15:47] LABS: RETICULOCYTE % (AUTO) 5.79 % (0.42-2.23)
[2021-04-18 15:54] LABS: INR 1.13 (0.85-1.15); PROTHROMBIN TIME 12.2 SEC (9.6-11.6)
[2021-04-18 15:55] LABS: PARTIAL THROMBOPLASTIN TIME 27.1 SEC (26.3-35.5)
[2021-04-18 16:01] LABS: % IRON SATURATION 45.7 % (30-44)
[2021-04-18] MEDS: INSULIN HUMULIN R 100 UNIT/ML 3ML SQ SCH ×2 (16:30→21:00)
[2021-04-18 16:41] LABS: BASOPHILS % (AUTO) 0.3 % (0.0-5.0); EOSINOPHILS % (AUTO) 0.1 % (0.0-8.0); LYMPHOCYTES % (AUTO) 5.3 % (21.0-51.0); MEAN CORPUSCULAR HEMOGLOBIN 30.3 pg (27.0-33.0); MEAN CORPUSCULAR HGB CONC 32.9 g/dL (32.0-36.0); MONOCYTES % (AUTO) 3.7 % (3.0-13.0); NEUTROPHILS % (AUTO) 89.7 % (40.0-77.0); NUCLEATED RED BLOOD CELLS 1.2 % (0.0-0.19); PLATELET COUNT (AUTO) 302 K/uL (130-400); RED BLOOD CELL COUNT(AUTO) 1.75 MIL/uL (4.50-6.20)
[2021-04-18 17:00] LABS: HEMATOCRIT 16.1 % (42-54)
[2021-04-18] MEDS ORDERED: APIX5TAB PO (17:07)
[2021-04-18] MEDS ORDERED: HYDR-4154 PO (17:07)
[2021-04-18] MEDS: 0.9%NACL 50ML 50 ML IV SCH (17:36)
[2021-04-18] MEDS: ZOSYN 3.375GM+NS 50ML 50 ML IV SCH (17:36)
[2021-04-18] MEDS ORDERED: PRED5DRO25 OP (18:59)
[2021-04-18] MEDS: PANTOPRAZOLE 40 MG/VIAL IVP SCH (21:00)
[2021-04-19 00:47] LABS: HEMATOCRIT 25.2 % (42-54)
[2021-04-19] MEDS: 0.9%NACL 50ML 50 ML IV SCH ×2 (04:00→17:33)
[2021-04-19] MEDS: ZOSYN 3.375GM+NS 50ML 50 ML IV SCH ×2 (04:00→17:33)
[2021-04-19 04:17] VITALS: BP 134/46
[2021-04-19 07:13] LABS: HEMATOCRIT 27.3 % (42-54)
[2021-04-19 07:21] LABS: POTASSIUM 4.5 mmol/L (3.5-5.1)
[2021-04-19] MEDS: INSULIN HUMULIN R 100 UNIT/ML 3ML SQ SCH ×4 (07:30→20:26)
[2021-04-19 07:37] VITALS: BP 119/31
[2021-04-19 07:41] LABS: BILIRUBIN,TOTAL 0.5 mg/dL (0.2-1.0); CREATININE 5.8 mg/dL (0.5-1.5); MAGNESIUM 2.3 mg/dL (1.80-2.40); PHOSPHORUS 4.1 mg/dL (2.5-4.9)
[2021-04-19 07:42] LABS: ALBUMIN 3.1 g/dL (3.5-5.0); TOTAL PROTEIN, SERUM 6.7 g/dL (6.0-8.3)
[2021-04-19] MEDS ORDERED: FAMOTIDINE 20MG VIAL IV SCH (09:00)
[2021-04-19] MEDS: PANTOPRAZOLE 40 MG/VIAL IVP SCH ×2 (10:06→21:37)
[2021-04-19 11:39] VITALS: BP 121/58
[2021-04-19 21:26] VITALS: BP 131/50
[2021-04-19 22:38] VITALS: BP 147/58
[2021-04-19 22:50] VITALS: BP 132/90
[2021-04-20] VITALS (34 sets, daily range): BP systolic 120–215; BP diastolic 48–91
[2021-04-20] MEDS: 0.9%NACL 50ML 50 ML IV SCH ×2 (02:58→16:00)
[2021-04-20] MEDS: ZOSYN 3.375GM+NS 50ML 50 ML IV SCH ×2 (02:58→16:00)
[2021-04-20] MEDS: INSULIN HUMULIN R 100 UNIT/ML 3ML SQ SCH ×4 (06:29→20:05)
[2021-04-20] MEDS: PANTOPRAZOLE 40 MG/VIAL IVP SCH (08:35)
[2021-04-20] MEDS ORDERED: HYDRALAZINE 20MG/ML VIAL IM PRN (13:00)
[2021-04-20] MEDS ORDERED: PROPOFOL 10 MG/ML 20ML VIAL IV ONE (13:25)
[2021-04-20] MEDS ORDERED: EPOETIN ALFA-EPBX (ESRD) 10,000 UNIT/ML VIAL SQ SCH (14:00)
[2021-04-20] MEDS ORDERED: LABETALOL 20MG VIAL IV ONE (14:10)
[2021-04-20] MEDS ORDERED: AMLODIPINE 5 MG TAB PO ONE (15:30)
[2021-04-20 15:36] LABS: HEMATOCRIT 27.8 % (42-54); MEAN CORPUSCULAR HGB CONC 33.5 g/dL (32.0-36.0); MEAN CORPUSCULAR VOLUME 89.7 fL (79-99); NUCLEATED RED BLOOD CELLS 0.5 % (0.0-0.19); PLATELET COUNT (AUTO) 223 K/uL (130-400); RED CELL DISTRIBUTION WIDTH 18.5 % (11.0-15.5); WHITE BLOOD COUNT (AUTO) 9.2 K/uL (4.8-10.8)
[2021-04-20 15:47] LABS: CREATININE 5.6 mg/dL (0.5-1.5); POTASSIUM 3.3 mmol/L (3.5-5.1)
[2021-04-20] MEDS ORDERED: 0.9%NACL 1000ML 1,000 ML IV PRN (16:00)
[2021-04-20] MEDS: HYDRALAZINE 20MG/ML VIAL IV PRN (16:41)
[2021-04-20] MEDS: PANTOPRAZOLE 40 MG TAB DR PO SCH (20:05)
[2021-04-20] MEDS: ACETAMINOPHEN 325 MG TAB PO PRN (21:42)
[2021-04-20] MEDS ORDERED: HYDRALAZINE 25MG TABLET PO PRN (22:00)
[2021-04-21] VITALS (8 sets, daily range): BP systolic 131–192; BP diastolic 38–67
[2021-04-21] MEDS: ACETAMINOPHEN 325 MG TAB PO PRN ×2 (01:51→18:04)
[2021-04-21] MEDS: ZOSYN 3.375GM+NS 50ML 50 ML IV SCH ×2 (03:32→17:15)
[2021-04-21] MEDS: 0.9%NACL 50ML 50 ML IV SCH ×2 (03:32→17:24)
[2021-04-21 05:13] LABS: HEMATOCRIT 34.1 % (42-54); MEAN CORPUSCULAR HEMOGLOBIN 29.4 pg (27.0-33.0); MEAN CORPUSCULAR VOLUME 91.9 fL (79-99); NUCLEATED RED BLOOD CELLS 1.4 % (0.0-0.19); RED BLOOD CELL COUNT(AUTO) 3.71 MIL/uL (4.50-6.20); RED CELL DISTRIBUTION WIDTH 18.8 % (11.0-15.5); WHITE BLOOD COUNT (AUTO) 9.4 K/uL (4.8-10.8)
[2021-04-21 05:30] LABS: CREATININE 5.1 mg/dL (0.5-1.5); POTASSIUM 3.4 mmol/L (3.5-5.1)
[2021-04-21] MEDS: INSULIN HUMULIN R 100 UNIT/ML 3ML SQ SCH ×4 (06:32→20:38)
[2021-04-21] MEDS: CARVEDILOL 25 MG TABLET PO SCH ×2 (07:55→21:47)
[2021-04-21] MEDS: Vitamin B Complex/Vit C/Folic Acid PO SCH (07:55)
[2021-04-21] MEDS: AMLODIPINE 5 MG TAB PO SCH (07:56)
[2021-04-21] MEDS: PANTOPRAZOLE 40 MG TAB DR PO SCH ×2 (07:56→21:37)
[2021-04-21] MEDS: ATORVASTATIN 10 MG TABLET PO SCH (07:56)
[2021-04-21] MEDS: HYDRALAZINE 20MG/ML VIAL IV PRN (07:57)
[2021-04-21] MEDS ORDERED: AMLODIPINE 5 MG TAB PO SCH (21:00)
[2021-04-22] VITALS (21 sets, daily range): BP systolic 135–217; BP diastolic 36–91
[2021-04-22] MEDS: ZOSYN 3.375GM+NS 50ML 50 ML IV SCH ×2 (03:53→19:08)
[2021-04-22] MEDS: 0.9%NACL 50ML 50 ML IV SCH ×2 (03:53→19:08)
[2021-04-22] MEDS: INSULIN HUMULIN R 100 UNIT/ML 3ML SQ SCH ×4 (06:22→21:00)
[2021-04-22 06:26] LABS: EOSINOPHILS % (AUTO) 3.9 % (0.0-8.0); LYMPHOCYTES % (AUTO) 11.1 % (21.0-51.0); MEAN CORPUSCULAR HEMOGLOBIN 29.7 pg (27.0-33.0); MEAN CORPUSCULAR HGB CONC 32.5 g/dL (32.0-36.0); MEAN CORPUSCULAR VOLUME 91.4 fL (79-99); NEUTROPHILS % (AUTO) 73.2 % (40.0-77.0); NUCLEATED RED BLOOD CELLS 0.7 % (0.0-0.19); PLATELET COUNT (AUTO) 256 K/uL (130-400); RED CELL DISTRIBUTION WIDTH 19.1 % (11.0-15.5); WHITE BLOOD COUNT (AUTO) 7.3 K/uL (4.8-10.8)
[2021-04-22 06:37] LABS: CREATININE 7.4 mg/dL (0.5-1.5); POTASSIUM 3.7 mmol/L (3.5-5.1)
[2021-04-22] MEDS: Vitamin B Complex/Vit C/Folic Acid PO SCH (10:30)
[2021-04-22] MEDS: ATORVASTATIN 10 MG TABLET PO SCH (10:30)
[2021-04-22] MEDS: PANTOPRAZOLE 40 MG TAB DR PO SCH ×2 (10:30→22:40)
[2021-04-22] MEDS: AMLODIPINE 5 MG TAB PO SCH (10:31)
[2021-04-22] MEDS: CARVEDILOL 25 MG TABLET PO SCH ×2 (10:31→22:42)
[2021-04-22] MEDS: HYDRALAZINE 20MG/ML VIAL IV PRN (19:43)
[2021-04-23 03:25] VITALS: BP 140/52
[2021-04-23] MEDS: 0.9%NACL 50ML 50 ML IV SCH (03:56)
[2021-04-23] MEDS: ZOSYN 3.375GM+NS 50ML 50 ML IV SCH (03:56)
[2021-04-23] MEDS: ACETAMINOPHEN 325 MG TAB PO PRN (04:01)
[2021-04-23 06:52] LABS: BASOPHILS % (AUTO) 0.7 % (0.0-5.0); EOSINOPHILS % (AUTO) 4.1 % (0.0-8.0); HEMATOCRIT 34.7 % (42-54); LYMPHOCYTES % (AUTO) 11.3 % (21.0-51.0); MEAN CORPUSCULAR HGB CONC 32.3 g/dL (32.0-36.0); MONOCYTES % (AUTO) 7.7 % (3.0-13.0); NEUTROPHILS % (AUTO) 75.7 % (40.0-77.0); NUCLEATED RED BLOOD CELLS 0.2 % (0.0-0.19); PLATELET COUNT (AUTO) 248 K/uL (130-400); RED BLOOD CELL COUNT(AUTO) 3.73 MIL/uL (4.50-6.20); RED CELL DISTRIBUTION WIDTH 19.8 % (11.0-15.5); WHITE BLOOD COUNT (AUTO) 8.2 K/uL (4.8-10.8)
[2021-04-23 06:59] LABS: CREATININE 4.8 mg/dL (0.5-1.5); POTASSIUM 3.7 mmol/L (3.5-5.1)
[2021-04-23] MEDS: INSULIN HUMULIN R 100 UNIT/ML 3ML SQ SCH ×4 (07:30→23:44)
[2021-04-23 07:55] VITALS: BP 215/41
[2021-04-23 09:09] LABS: HEPATITIS Bs ANTIGEN SCREEN P Negative (Negative)
[2021-04-23] MEDS: PANTOPRAZOLE 40 MG TAB DR PO SCH ×2 (10:26→20:04)
[2021-04-23] MEDS: ATORVASTATIN 10 MG TABLET PO SCH (10:26)
[2021-04-23] MEDS: Vitamin B Complex/Vit C/Folic Acid PO SCH (10:26)
[2021-04-23] MEDS: CARVEDILOL 25 MG TABLET PO SCH ×2 (10:27→20:04)
[2021-04-23] MEDS: AMLODIPINE 5 MG TAB PO SCH (10:27)
[2021-04-23] MEDS: HYDRALAZINE 20MG/ML VIAL IV PRN ×2 (10:29→23:37)
[2021-04-23 12:01] VITALS: BP 204/44
[2021-04-23] MEDS ORDERED: LISINOPRIL 40 MG TABLET PO SCH (13:00)
[2021-04-23] MEDS: LISINOPRIL 40 MG TABLET PO SCH (13:46)
[2021-04-23 16:00] VITALS: BP 173/61
[2021-04-23] MEDS: LACTOBACILLUS RHAMNOSUS GG 1 EACH CAP.SPRINK PO SCH (20:04)
[2021-04-23 20:17] VITALS: BP 142/63
[2021-04-23 23:36] VITALS: BP 181/41
[2021-04-24 03:58] VITALS: BP 144/53
[2021-04-24] MEDS: INSULIN HUMULIN R 100 UNIT/ML 3ML SQ SCH ×4 (05:41→20:51)
[2021-04-24 06:47] LABS: BASOPHILS % (AUTO) 0.7 % (0.0-5.0); EOSINOPHILS % (AUTO) 3.1 % (0.0-8.0); HEMATOCRIT 34.4 % (42-54); LYMPHOCYTES % (AUTO) 10.5 % (21.0-51.0); MEAN CORPUSCULAR HEMOGLOBIN 29.9 pg (27.0-33.0); MEAN CORPUSCULAR HGB CONC 32.3 g/dL (32.0-36.0); MEAN CORPUSCULAR VOLUME 92.7 fL (79-99); MONOCYTES % (AUTO) 8.3 % (3.0-13.0); NEUTROPHILS % (AUTO) 77.1 % (40.0-77.0); PLATELET COUNT (AUTO) 240 K/uL (130-400); RED BLOOD CELL COUNT(AUTO) 3.71 MIL/uL (4.50-6.20); RED CELL DISTRIBUTION WIDTH 20.3 % (11.0-15.5); WHITE BLOOD COUNT (AUTO) 8.6 K/uL (4.8-10.8)
[2021-04-24 06:57] LABS: POTASSIUM 3.9 mmol/L (3.5-5.1)
[2021-04-24 08:14] VITALS: BP 156/68
[2021-04-24] MEDS: AMLODIPINE 5 MG TAB PO SCH (10:46)
[2021-04-24] MEDS: PANTOPRAZOLE 40 MG TAB DR PO SCH ×2 (10:47→20:50)
[2021-04-24] MEDS: LISINOPRIL 40 MG TABLET PO SCH (10:47)
[2021-04-24] MEDS: ATORVASTATIN 10 MG TABLET PO SCH (10:47)
[2021-04-24] MEDS: CARVEDILOL 25 MG TABLET PO SCH ×2 (10:50→20:50)
[2021-04-24] MEDS: Vitamin B Complex/Vit C/Folic Acid PO SCH (10:51)
[2021-04-24 11:54] VITALS: BP 158/59
[2021-04-24 16:37] VITALS: BP 144/53
[2021-04-24] MEDS: LACTOBACILLUS RHAMNOSUS GG 1 EACH CAP.SPRINK PO SCH (19:36)
[2021-04-24 20:23] VITALS: BP 172/68
[2021-04-24] MEDS: HYDRALAZINE 20MG/ML VIAL IV PRN (20:51)
[2021-04-25] VITALS (19 sets, daily range): BP systolic 119–183; BP diastolic 43–89
[2021-04-25] MEDS: INSULIN HUMULIN R 100 UNIT/ML 3ML SQ SCH ×3 (05:59→16:24)
[2021-04-25] MEDS: PANTOPRAZOLE 40 MG TAB DR PO SCH (08:32)
[2021-04-25] MEDS: AMLODIPINE 5 MG TAB PO SCH (08:32)
[2021-04-25] MEDS: ATORVASTATIN 10 MG TABLET PO SCH (08:33)
[2021-04-25] MEDS: LISINOPRIL 40 MG TABLET PO SCH (08:33)
[2021-04-25] MEDS: Vitamin B Complex/Vit C/Folic Acid PO SCH (08:33)
[2021-04-25] MEDS: CARVEDILOL 25 MG TABLET PO SCH (08:33)
[2021-04-25 13:04] LABS: HEMATOCRIT 30.6 % (42-54); MEAN CORPUSCULAR HEMOGLOBIN 30.7 pg (27.0-33.0); MEAN CORPUSCULAR HGB CONC 32.4 g/dL (32.0-36.0); MEAN CORPUSCULAR VOLUME 94.7 fL (79-99); PLATELET COUNT (AUTO) 197 K/uL (130-400); RED BLOOD CELL COUNT(AUTO) 3.23 MIL/uL (4.50-6.20); RED CELL DISTRIBUTION WIDTH 20.1 % (11.0-15.5); WHITE BLOOD COUNT (AUTO) 9.1 K/uL (4.8-10.8)
[2021-04-25] MEDS ORDERED: LISI40TA9 PO (13:06)
[2021-04-25] MEDS ORDERED: PANT40TA55 PO (13:06)
[2021-04-25 13:21] LABS: CREATININE 9.4 mg/dL (0.5-1.5)
[2021-04-25 13:24] LABS: BASOPHILS % (MANUAL) 1 % (0-2); EOSINOPHILS % (MANUAL) 1 % (1-6); LYMPHOCYTES % (MANUAL) 12 % (22-44); MAN.DIFF COMMENT-IMPRESSION MANUAL DIFFERENTIAL; MONOCYTES % (MANUAL) 3 % (2-9); PLATELET MORPHOLOGY COMMENT ADEQUATE; SEGMENTED NEUTROPHILS % 83 % (40-70)
[2021-04-25] MEDS: LACTOBACILLUS RHAMNOSUS GG 1 EACH CAP.SPRINK PO SCH (18:41)
== END 2021-04-25 19:45 | disposition home or self-care (01) | DRG 377 ==
LOC: EDH 11:28 → EDHIP 15:07 → 4CH 04-19 22:19
PROVIDERS: ADMIT Internal Medicine; ATTEND Internal Medicine
PROC: 30233N1 Transfusion of Nonautologous Red Blood Cells into Peripheral Vein, Percutaneous Approach (ICD-10-PCS; principal; 2021-04-18)
PROC: 5A1D70Z Performance of Urinary Filtration, Intermittent, Less than 6 Hours Per Day (ICD-10-PCS; 2021-04-18)
PROC: 5A1D70Z Performance of Urinary Filtration, Intermittent, Less than 6 Hours Per Day (ICD-10-PCS; 2021-04-20)
PROC: 0DB68ZX Excision of Stomach, Via Natural or Artificial Opening Endoscopic, Diagnostic (ICD-10-PCS; 2021-04-20)
PROC: 5A1D70Z Performance of Urinary Filtration, Intermittent, Less than 6 Hours Per Day (ICD-10-PCS; 2021-04-22)
PROC: 5A1D70Z Performance of Urinary Filtration, Intermittent, Less than 6 Hours Per Day (ICD-10-PCS; 2021-04-25)
DX: K29.71 Gastritis, unspecified, with bleeding (principal); I21.A1 Myocardial infarction type 2; J18.9 Pneumonia, unspecified organism; N18.6 End stage renal disease; R57.8 Other shock; D62 Acute posthemorrhagic anemia; I12.0 Hypertensive chronic kidney disease with stage 5 chronic kidney disease or end stage renal disease; I45.2 Bifascicular block; K29.81 Duodenitis with bleeding; E11.65 Type 2 diabetes mellitus with hyperglycemia; E11.51 Type 2 diabetes mellitus with diabetic peripheral angiopathy without gangrene; E87.70 Fluid overload, unspecified; E11.22 Type 2 diabetes mellitus with diabetic chronic kidney disease; Y95 Nosocomial condition; E11.40 Type 2 diabetes mellitus with diabetic neuropathy, unspecified; F17.210 Nicotine dependence, cigarettes, uncomplicated; I25.10 Atherosclerotic heart disease of native coronary artery without angina pectoris; E78.5 Hyperlipidemia, unspecified; E83.39 Other disorders of phosphorus metabolism; E87.5 Hyperkalemia; Z99.2 Dependence on renal dialysis; Z79.4 Long term (current) use of insulin; Z79.01 Long term (current) use of anticoagulants; Z95.1 Presence of aortocoronary bypass graft; Z86.711 Personal history of pulmonary embolism; Z89.512 Acquired absence of left leg below knee; Z89.612 Acquired absence of left leg above knee; Z90.49 Acquired absence of other specified parts of digestive tract; Z86.73 Personal history of transient ischemic attack (TIA), and cerebral infarction without residual deficits; Z82.49 Family history of ischemic heart disease and other diseases of the circulatory system
CPT/HCPCS: 36415; 43239; 71045; 80048; 80053; 82270; 82550; 82948; 83010; 83036; 83540; 83550; 83605; 83615; 83735; 83874; 83880; 84100; 84145; 84484; 85014; 85018; 85025; 85027; 85045; 85610; 85730; 86140; 86704; 86706; 86850; 86880; 86900; 86901; 86923; 87040; 87340; 87507; 88305; 88342; 90935; 93005; 93971; 97039; C9113; G0378; J0360; J0696; J1815; J2405; J2543; J2704; J3490; P9016